=== PATIENT | male | born 1990 | race Caucasian/White ===

== ENCOUNTER 2020-07-03 10:45 | Emergency (ER) | payer MEDICAID ==
[~2020-07-03] VITALS: Ht 188 cm; Wt 100.0 kg
--- NOTE | 2020-07-03 12:04 | NUR ---
PT IN SHOWER, PER MD REQUEST. PA TO I&D OF THUMB.
[2020-07-03] MEDS ORDERED: TRIMETHOPRIM 100 MG TABLET PO SCH (12:09)
--- NOTE | 2020-07-03 12:24 | NUR ---
REQUESTED MED FROM PHARMACY. PA NOTIFIED PT BACK IN ROOM.
[2020-07-03] MEDS ORDERED: BUPIVACAINE 0.25% ONE (12:37)
[2020-07-03] MEDS ORDERED: LIDOCAINE-MPF 1%, 5ML ONE (12:37)
--- NOTE | 2020-07-03 12:43 | NUR ---
MEDS PULLED FOR PROVIDER TO ADMIN. ROOM SET UP FOR I&D.
[2020-07-03] MEDS ORDERED: BUPIVACAINE 0.25% INFIL ONE (13:00)
[2020-07-03] MEDS ORDERED: LIDOCAINE-MPF 1%, 5ML INFIL ONE (13:00)
[2020-07-03] MEDS ORDERED: NEOSPORIN OINT. PKT 1 PACKET ONE (13:42)
[2020-07-03 14:30] VITALS: BP 140/82
== END 2020-07-03 14:32 | disposition home or self-care (01) ==
LOC: ED 14:29
DX: L03.012 Cellulitis of left finger (principal); M79.89 Other specified soft tissue disorders; M79.642 Pain in left hand; F17.200 Nicotine dependence, unspecified, uncomplicated
CPT/HCPCS: 10060; 99283